=== PATIENT | male | born 1995 | race Caucasian/White ===

== ENCOUNTER 2020-05-14 15:30 | Emergency (ER) | payer SELFPAY ==
[2020-05-14] MEDS ORDERED: Naproxen 500 MG TAB ONE (15:51)
== END 2020-05-14 17:00 | disposition short-term general hospital (02) ==
LOC: NAV ERS 15:30
DX: M25.531 Pain in right wrist (principal); F17.210 Nicotine dependence, cigarettes, uncomplicated; W19.XXXA Unspecified fall, initial encounter
CPT/HCPCS: 99284